=== PATIENT | female | born 1955 | race Hispanic/Latino ===

== ENCOUNTER 2022-02-06 04:10 | Emergency (ER) | payer MEDICARE ==
[2022-02-06 04:27] VITALS: BP 148/88
[2022-02-06] MEDS ORDERED: ONDANSETRON 4 MG ODT TAB PO ONE ×2 (04:34→05:38)
[2022-02-06] MEDS ORDERED: IBUPROFEN 600 MG TAB PO ONE (04:34)
[2022-02-06] MEDS ORDERED: oxyCODONE /ACETAMINOPHEN 5-325MG TAB PO ONE (04:34)
--- NOTE | 2022-02-06 05:21 | XRay Report ---
RIGHT HAND 3 VIEW(S) INDICATION / CLINICAL INFORMATION: RIGHT HAND pain. Knot down bilateral bulb in door with pain in arm x7 hours. COMPARISON: None available. FINDINGS: BONES / JOINT(S): Fracture of the distal right radial metaphysis is suggested. Mild narrowing of join t space involving multiple PIPs and first CMC compatible with osteoarthritis. SOFT TISSUES: Minimal soft tissue swelling in the region of the wrist. ADDITIONAL FINDINGS: None. IMPRESSION: 1. Nondisplaced fracture distal right radial metaphysis. 2. No acute osseous injury of the right hand. Signer Name: Clifford Noguera II, MD Signed: 02/06/2022 5:17 AM Workstation Name: [id number]
--- NOTE | 2022-02-06 05:22 | XRay Report ---
RIGHT WRIST 3 VIEW(S) INDICATION / CLINICAL INFORMATION: Fall COMPARISON: None available. FINDINGS: BONES / JOINT(S): Acute minimally impacted fracture of the distal right radial metaphysis is present. Fracture line appears to cross the articular surface of the radiocarpal joint. SOFT TISSUES: No significant abnormality. ADDITIONAL FINDINGS: None. IMPRESSION: 1. Minimally comminuted intra-articular fracture of the distal right radial metaphysis. Signer Name: Clifford Noguera II, MD Signed: 02/06/2022 5:18 AM Workstation Name: [id number]
--- NOTE | 2022-02-06 05:30 | Emergency Department Report ---
ED Fall HPI - General Chief Complaint: Extremity Injury, Upper Stated Complaint: RIGHT HAND PAIN Source: patient Mode of arrival: Ambulatory - History of Present Illness Initial Comments: Patient is a 66-year-old female with a history of iron deficiency anemia, chronic osteopenia, hypertension and asthma presents to the ED with complaint of acute onset right wrist and hand pain with mild swelling after she tripped on the revolving door of a hotel and fell down landing on the right wrist about 1 hour ago. Patient states that she is unable to perform any active range of motion with the right hand because of pain. Patient denies dizziness, syncope, seizures, chest pain or shortness of breath, nausea and vomiting, head or neck injuries, headache, loss of consciousness, back pain, hip pain, numbness and tingling or weakness of upper and lower extremities bilaterally. 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 denies: headache, neck pain, numbness, weakness, chest paint, shortness of breath, abdominal pain, hematuria, unable to walk, lightheaded, other - Related Data Previous Rx's Medication Instructions Recorded Last Taken Type Ibuprofen [Motrin] 600 mg PO Q8H PRN #30 tablet 02/06/22 Unknown Rx Ondansetron [Zofran Odt] 4 mg PO Q8HR PRN #15 tab.rapdis 02/06/22 Unknown Rx Oxycodone HCl/Acetaminophen 1 each PO Q6HR PRN 3 Days #12 tab 02/06/22 Unknown Rx [Percocet 7.5/325 mg] Allergies Allergy/AdvReac Type Severity Reaction Status Date / Time amoxicillin Allergy Hives Verified 02/06/22 04:28 ED Review of Systems ROS: Stated complaint: RIGHT HAND PAIN Other details as noted in HPI Constitutional: denies: chills, fever Eyes: denies: eye pain, eye discharge, vision change ENT: denies: ear pain, throat pain Respiratory: denies: cough, shortness of breath, wheezing Cardiovascular: denies: chest pain, palpitations Endocrine: no symptoms reported Gastrointestinal: denies: abdominal pain, nausea, vomiting, diarrhea Genitourinary: denies: urgency, dysuria, discharge Musculoskeletal: joint swelling, arthralgia (Right hand and wrist pain with swelling). denies: back pain Skin: denies: rash, lesions Neurological: denies: headache, weakness, paresthesias Psychiatric: denies: anxiety, depression Hematological/Lymphatic: denies: easy bleeding, easy bruising ED Past Medical Hx - Past Medical History Previous Medical History?: Yes Hx Psychiatric Treatment: Yes (ANXIETY) Hx Asthma: Yes Additional medical history: OBESITY, SLEEP APNEA - Surgical History Past Surgical History?: Yes Hx Cholecystectomy: Yes Additional Surgical History: BARIACTRIC SURGERY - Social History Smoking Status: Never Smoker Substance Use Type: None - Medications Home Medications: Home Medications Medication Instructions Recorded Confirmed Last Taken Type Ibuprofen [Motrin] 600 mg PO Q8H PRN #30 tablet 02/06/22 Unknown Rx Ondansetron [Zofran Odt] 4 mg PO Q8HR PRN #15 tab.rapdis 02/06/22 Unknown Rx Oxycodone HCl/Acetaminophen 1 each PO Q6HR PRN 3 Days #12 tab 02/06/22 Unknown Rx [Percocet 7.5/325 mg] ED Physical Exam - General Limitations: No Limitations General appearance: alert, in no apparent distress - Head Head exam: Present: atraumatic, normocephalic, normal inspection - Eye Eye exam: Present: normal appearance, PERRL, EOMI Pupils: Present: normal accommodation - ENT ENT exam: Present: normal exam, normal orophraynx, mucous membranes moist, TM's normal bilaterally, normal external ear exam - Neck Neck exam: Present: normal inspection, full ROM - Respiratory Respiratory exam: Present: normal lung sounds bilaterally. Absent: respiratory distress, wheezes, rhonchi, chest wall tenderness, decreased breath sounds, prolonged expiratory, other - Cardiovascular Cardiovascular Exam: Present: regular rate, normal rhythm, normal heart sounds. Absent: systolic murmur, diastolic murmur, rubs, gallop - GI/Abdominal GI/Abdominal exam: Present: soft, normal bowel sounds. Absent: tenderness, guarding, rebound, hyperactive bowel sounds, hypoactive bowel sounds, organomegaly, mass - Extremities Exam Extremities exam: Present: normal inspection, tenderness (Palpable right wrist and right hand tenderness with mild swelling and limited range of motion due to pain), normal capillary refill, joint swelling (Moderately swollen right wrist and right hand). Absent: full ROM (Limited range of motion of right wrist and right hand due to pain), pedal edema, calf tenderness - Back Exam Back exam: Present: normal inspection, full ROM. Absent: tenderness, CVA tenderness (R), CVA tenderness (L), muscle spasm, paraspinal tenderness, vertebral tenderness - Neurological Exam Neurological exam: Present: alert, oriented X3, CN II-XII intact, normal gait, reflexes normal - Psychiatric Psychiatric exam: Present: normal affect, normal mood - Skin Skin exam: Present: warm, dry, intact, normal color. Absent: rash ED Course Vital Signs 02/06/22 04:19 Temperature 98.3 F Pulse Rate 84 Respiratory 18 Rate Blood Pressure 148/88 O2 Sat by Pulse 100 Oximetry ED Medical Decision Making - Radiology Data Radiology results: report reviewed, image reviewed [facility] [address] [place] [address] XRay Report Signed Patient: ROWENA CANNON MR#: [id number] : 1955 Acct:[id number] Age/Sex: 66 / F ADM Date: 02/06/22 Loc: ED Attending Dr: Ordering Physician: CITLALI WHALEN Date of Service: 02/06/22 Procedure(s): XR wrist 3+V RT Accession Number(s): [id number] cc: CITLALI WHALEN Fluoro Time In Minutes: RIGHT WRIST 3 VIEW(S) INDICATION / CLINICAL INFORMATION: Fall COMPARISON: None available. FINDINGS: BONES / JOINT(S): Acute minimally impacted fracture of the distal right radial metaphysis is present. Fracture line appears to cross the articular surface of the radiocarpal joint. SOFT TISSUES: No significant abnormality. ADDITIONAL FINDINGS: None. IMPRESSION: 1. Minimally comminuted intra-articular fracture of the distal right radial metaphysis. Signer Name: Alexei Cheema II, MD Signed: 02/06/2022 5:18 AM Workstation Name: [id number] Transcribed By: OLAF Dictated By: ALEXEI CHEEMA II, MD Electronically Authenticated By: ALEXEI CHEEMA II, MD Signed Date/Time: 02/06/22517 DD/ 6 TD/TT: [facility] [address] [place] [address] XRay Report Signed Patient: ROWENA CANNON MR#: [id number] : 1955 Acct:[id number] Age/Sex: 66 / F ADM Date: 02/06/22 Loc: ED Attending Dr: Ordering Physician: MILA GARZA Date of Service: 02/06/22 Procedure(s): XR hand 3+V RT Accession Number(s): [id number] cc: MILA GARZA Fluoro Time In Minutes: RIGHT HAND 3 VIEW(S) INDICATION / CLINICAL INFORMATION: RIGHT HAND pain. Knot down bilateral bulb in door with pain in arm x7 hours. COMPARISON: None available. FINDINGS: BONES / JOINT(S): Fracture of the distal right radial metaphysis is suggested. Mild narrowing of joint space involving multiple PIPs and first CMC compatible with osteoarthritis. SOFT TISSUES: Minimal soft tissue swelling in the region of the wrist. ADDITIONAL FINDINGS: None. IMPRESSION: 1. Nondisplaced fracture distal right radial metaphysis. 2. No acute osseous injury of the right hand. Signer Name: Alexei Cheema II, MD Signed: 02/06/2022 5:17 AM Workstation Name: [id number] Transcribed By: OLAF Dictated By: ALEXEI CHEEMA II, MD Electronically Authenticated By: ALEXEI CHEEMA II, MD Signed Date/Time: 02/06/22516 DD/ 1 TD/TT: - Medical Decision Making This is a 66-year-old female with a history of iron deficiency anemia, chronic osteopenia, hypertension and asthma presents to the ED with complaint of acute onset right wrist and hand pain with mild swelling after she tripped on the revolving door of a hotel and fell down landing on the right wrist about 1 hour ago. Patient states that she is unable to perform any active range of motion with the right hand because of pain. In the ED, patient is alert and oriented x3 and is not in any distress. Patient was treated for pain in the ED. Right wrist x-ray showed a minimally comminuted intra-articular fracture of the distal right radial metaphysis. Right hand x-ray showed a nondisplaced fracture distal right radial metaphysis. No acute osseous injury of the right hand. Patient's right hand and wrist was splinted with a sugar tong splint and the right antecubital splint and sling. Patient was discharged home on pain medications and given referral to the orthopedic surgeon on-call Dr. Mora for further evaluation and follow-up. Patient was advised to contact Dr. De Luna's office first thing in the morning on Monday, 07 February 2022 to schedule a follow- up appointment. Patient was however advised to follow-up with a local orthopedic surgeon if she does not reside in the local area. Patient was otherwise advised return to the ED immediately if symptoms get worse. - Differential Diagnosis Colles' fracture; hand fractures; hand sprain; wrist sprain; hand contusion Critical care attestation.: If time is entered above; I have spent that time in minutes in the direct care of this critically ill patient, excluding procedure time. ED Disposition Clinical Impression: Closed Colles' fracture of right radius Qualifiers: Encounter type: initial encounter Qualified Code(s): S52.531A - Colles' fracture of right radius, initial encounter for closed fracture Sprain of right hand Qualifiers: Encounter type: initial encounter Qualified Code(s): S63.91XA - Sprain of u nspecified part of right wrist and hand, initial encounter Disposition: HOME / SELF CARE / HOMELESS Is pt being admited?: No Does the pt Need Aspirin: No Condition: Stable Instructions: Cast or Splint Care, Adult, [id number], Radial Head Fracture, [id number], Colles Fracture Additional Instructions: The x-ray of the right wrist and hand showed a minimally comminuted intra- articular fracture of the distal right radial metaphysis. The right hand x-ray showed no acute fractures or subluxations of the right hand. Therefore take pain medication as needed with food, drink plenty of fluids and follow-up with the orthopedic surgeon Dr. Mora in 3 to 5 days for reevaluation if you elect to stay locally. However if you like to to [facility] or to [facility], ensure that you follow-up with the orthopedic surgeons in those areas in the next 3 to 5 days for further evaluation. However return to the ED immediately if symptoms get worse. Prescriptions: Ibuprofen [Motrin] 600 mg PO Q8H PRN #30 tablet PRN Reason: Pain Oxycodone HCl/Acetaminophen [Percocet 7.5/325 mg] 1 each PO Q6HR PRN 3 Days #12 tab PRN Reason: Pain Ondansetron [Zofran Odt] 4 mg PO Q8HR PRN #15 tab.rapdis PRN Reason: Nausea Referrals: ISRAEL MORA MD [Staff Physician] - 3-5 Days Time of Disposition: 05:37 Print Language: SAMOAN
[2022-02-06] MEDS ORDERED: MORPHINE 4 MG/1 ML INJ IM ONE (05:38)
== END 2022-02-06 06:30 | disposition home or self-care (01) ==
LOC: ED 04:10
DX: S52.531A Colles' fracture of right radius, initial encounter for closed fracture (principal); S63.91XA Sprain of unspecified part of right wrist and hand, initial encounter; F41.9 Anxiety disorder, unspecified; Z90.49 Acquired absence of other specified parts of digestive tract; J45.909 Unspecified asthma, uncomplicated; X58.XXXA Exposure to other specified factors, initial encounter; Y93.89 Activity, other specified; Y92.89 Other specified places as the place of occurrence of the external cause; Y99.8 Other external cause status
CPT/HCPCS: 29125; 73110; 73130; 96372; 99284; J2270; J3490; Q0162